=== PATIENT | male | born 1965 | race Caucasian/White ===

== ENCOUNTER 2020-02-19 18:02 | Inpatient (IN) | payer BC, SELFPAY ==
[2020-02-19 18:08] VITALS: BP 107/66; PULSE 52; RESP 14; TEMP 36.3; O2SAT 97; BMI 26.6
[2020-02-19 20:13] LABS: Basophils # 0.1 10^3/uL (0.0-0.1); Basophils % 0.5 %; Eosinophils # 0.2 10^3/uL (0.0-0.8); Eosinophils % 1.5 %; Hematocrit 43.8 % (42.0-52.0); Hemoglobin 14.9 g/dL (11.7-16.6); Lymphocytes # 4.3 10^3/uL (0.8-4.8); Lymphocytes % 41.1 %; Mean Corpuscular Hemoglobin 32.8 pg (28.0-34.0); Mean Corpuscular Volume 96.5 fL (80-94); Mean Platelet Volume 12.8 fL (7.4-10.4); Monocytes # 1.2 10^3/uL (0.2-0.9); Monocytes % 11.8 %; Neutrophils # 4.65 10^3/uL (1.8-7.7); Neutrophils % 44.9 %; Nucleated Red Blood Cells % 0 %; Platelet Count 271 10^3/cmm (130-400); Red Blood Count 4.54 10^6/uL (4.1-5.3); Red Cell Distribution Width 12.8 % (12.1-15.1); White Blood Count 10.4 10^3/uL (4.0-10.0)
[2020-02-19 20:47] LABS: Alanine Aminotransferase 259 U/L (0-41); Albumin Level 4.7 g/dL (3.5-5.2); Alkaline Phosphatase 114 IU/L (40-130); Anion Gap 25.2 (5-19); Aspartate Amino Transferase 112 U/L (0-40); Blood Urea Nitrogen 81 mg/dL (6-20); Calcium 9.7 mg/dL (8.5-10.5); Carbon Dioxide 18 mmol/L (22-29); Chloride 94 mmol/L (98-107); Creatine Phosphokinase 167 U/L (39-308); Globulin 3.8 g/dL (1.3-4.6); Glomerular Filtration Rate 6.6 mL/min (90-130); Glucose 108 mg/dL (65-115); Magnesium 3.1 mg/dL (1.7-2.3); Osmolality Calculated 275 mOsm/kg (285-295); Potassium 5.2 mmol/L (3.5-5.1); Sodium 132 mmol/L (136-145); Total Bilirubin 0.6 mg/dL (0.15-1.2); Total Protein 8.5 g/dL (6.6-8.7)
[2020-02-19 21:05] LABS: INR 0.92 (0.8-1.2)
--- NOTE | 2020-02-19 21:11 | ED_ITS ---
HPI - General Adult General: Chief complaint: General Medical Stated complaint: abnormal labs Time Seen by Provider: 02/19/20 20:39 History of Present Illness: HPI narrative: 55-year-old male brought into the emergency room at the direction of his PCP had some abnormal labs. He was told his renal functions were abnormal but a week ago he worked on the [employer] did not feel good actually got sick that evening since then he is been sensitive to heat just generally not felt well he thought he got quite dehydrated he was having nausea and vomiting that night. 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 Onset (ago): day(s) Severity: moderate Relieving factors: none Exacerbating factors: other (Heat) Associated symptoms: Reports decreased appetite, headache(s), malaise, nausea, vomiting and weakness; Deny chest pain, dyspnea or rash Treatments prior to arrival: none Review of Systems Const: Reports: malaise ENMT: Denies: throat pain, ear or mastoid pain, nasal discharge or nasal congestion Card: Denies: chest pain, edema, dyspnea on exertion or orthopnea Resp: Denies: dyspnea, productive cough or non-productive cough GI: Reports: nausea and vomiting : Denies: flank pain, dysuria, urinary frequency or urinary urgency Skin/Breast: Denies: rash or pruritus Neuro: Reports: headache(s) [facility] ED PFSH: Medical History (Updated 03/02/20 @ 07:01 by Iam Denson DO) Gout Hypertension Blood pressure medication reduced. Surgical History (Updated 02/19/20 @ 21:13 by Iam Denson DO) No pertinent past surgical history Family History (Updated 02/19/20 @ 23:51 by Elba Pham MD) Father Cancer Mother Afib Other Hypertension Social History (Updated 02/19/20 @ 23:50 by Elba Pham MD) Smoking and tobacco status: former smoker Alcohol intake: current Alcohol intake frequency: other Household members: spouse Physical Exam Const: COMMON NORMALS: no acute distress GENERAL APPEARANCE: cooperative and comfortable ORIENTATION/CONSCIOUSNESS: Yes awake, Yes oriented to person, Yes oriented to place and Yes oriented to time HENMT: COMMON NORMALS: normocephalic, atraumatic, hearing grossly normal bilaterally, external ears normal, EAC's normal, TM's normal bilaterally, Normal nasal mucous membranes and turbinates present, moist oral mucous membranes and oropharynx normal HEAD & SCALP: normocephalic and atraumatic NOSE: Normal nasal mucous membranes and turbinates present EXTERNAL EAR: Yes external ears normal EXTERNAL AUDITORY CANAL: EAC's normal TYMPANIC MEMBRANE: TM's normal bilaterally Eye: COMMON NORMALS: Equal, round and reactive pupils present, EOMs intact bilaterally, conjunctivae normal and no scleral icterus CONJUNCTIVA: Yes conjunctivae normal PUPIL: Yes Equal, round and reactive pupils present Neck/C-Spine: COMMON NORMALS: full ROM, no lymphadenopathy, supple and no JVD Lymph: LYMPHATIC: no lymphadenopathy noted and no lymphedema noted Resp: COMMON NORMALS: normal respiratory effort, No retractions, No use of accessory muscles and clear to auscultation bilaterally AUSCULTATION: clear to auscultation bilaterally Cardio: COMMON NORMALS: no JVD, regular rate, regular rhythm and No murmurs present (Cardio) RATE: regular rate RHYTHM: regular rhythm GI: COMMON NORMALS: Soft to palpation and No hepatosplenomegaly present AUSCULTATION: Yes normoactive bowel sounds PALPATION: Yes Soft to palpation, No Tenderness to palpation present (GI), No Guarding due to palpation present (GI) and Yes No hepatosplenomegaly present Extremity: COMMON NORMALS: normal to inspection, capillary refill normal, no clubbing, cyanosis or edema, no calf tenderness and no pedal edema Neuro: SENSORIUM/ORIENTATION: Yes oriented to person, Yes oriented to place and Yes oriented to time Skin: COMMON NORMALS: no rashes or lesions noted GENERAL SKIN EXAM: no rashes or lesions noted Course Vital Signs: Vital signs: Vital Signs Temperature 98.0 F 02/21/20 10:59 Pulse Rate 63 02/21/20 10:59 Respiratory Rate 18 02/21/20 10:59 Blood Pressure 122/78 02/21/20 10:59 Pulse Oximetry 99 02/21/20 10:59 MDM - General Adult MDM Narrative: Medical decision making narrative: Patient is significant acute kidney injury with an elevated creatinine of 8.5 he has mild hyperkalemia and only 5.2 we will go ahead and admit for IV fluids discussed with Dr. Florez's she will be the attending he also has a mild transaminitis. Lab Data: Labs: Lab Results 02/19/20 02/19/20 02/19/20 Range/Units 20:05 20:05 20:05 WBC 10.4 H (4.0-10.0) 10^3/ uL RBC 4.54 (4.1-5.3) 10^6/u L Hgb 14.9 (11.7-16.6) g/dL Hct 43.8 (42.0-52.0) % MCV 96.5 H (80-94) fL MCH 32.8 (28.0-34.0) pg MCHC 34.0 (30.0-36.0) g/dL RDW 12.8 (12.1-15.1) % Plt Count 271 (130-400) 10^3/c mm MPV 12.8 H (7.4-10.4) fL Neut % (Auto) 44.9 % Lymph % (Auto) 41.1 % [place] % (Auto) 11.8 % Eos % (Auto) 1.5 % Baso % (Auto) 0.5 % Neut # (Auto) 4.65 (1.8-7.7) 10^3/u L Lymph # (Auto) 4.3 (0.8-4.8) 10^3/u L [place] # (Auto) 1.2 H (0.2-0.9) 10^3/u L Eos # (Auto) 0.2 (0.0-0.8) 10^3/u L Baso # (Auto) 0.1 (0.0-0.1) 10^3/u L Nucleated RBC % (a uto) 0 % Nucleated RBCs # 0.0 /100WBC PT 12.70 (10.5-13.3) SECO NDS INR 0.92 (0.8-1.2) Sodium 132 L (136-145) mmol/L Potassium 5.2 H (3.5-5.1) mmol/L Chloride 94 L (98-107) mmol/L Carbon Dioxide 18 L (22-29) mmol/L Anion Gap 25.2 H (5-19) BUN 81 H (6-20) mg/dL Creatinine 8.5 H* (0.7-1.2) mg/dL GFR Calculation 6.6 L (90-130) mL/min Glucose 108 (65-115) mg/dL Calculated Osmolal ity 275 L (285-295) mOsm/k g Uric Acid (3.4-7.0) mg/dL Calcium 9.7 (8.5-10.5) mg/dL Phosphorus (2.5-4.5) mg/dL Magnesium 3.1 H (1.7-2.3) mg/dL Total Bilirubin 0.6 (0.15-1.2) mg/dL AST 112 H (0-40) U/L ALT 259 H (0-41) U/L Alkaline Phosphata se 114 (40-130) IU/L Creatine Kinase 167 (39-308) U/L Total Protein 8.5 (6.6-8.7) g/dL Albumin 4.7 (3.5-5.2) g/dL Globulin 3.8 (1.3-4.6) g/dL Urine Color (Yellow) Urine Appearance (CLEAR) Urine pH (5-7) Ur Specific Gravit y (1.005-1.030) Urine Protein (Negative) Urine Glucose (UA) (Normal) Urine Ketones (Negative) Urine Blood (Negative) Urine Nitrate (Negative) Urine Bilirubin (NEGATIVE) Urine Urobilinogen (Negative) mg/dL Ur Leukocyte [place] (Negative) Urine RBC (0-2) /hpf Urine WBC (0-5) /hpf Ur Squamous Epith Cells (0-5) Calcium Oxalate Cr ystal /hpf Urine Bacteria (NONE) Hyaline Casts Urine Mucus 02/19/20 02/19/20 Range/Units 20:05 21:20 WBC (4.0-10.0) 10^3/ uL RBC (4.1-5.3) 10^6/u L Hgb (11.7-16.6) g/dL Hct (42.0-52.0) % MCV (80-94) fL MCH (28.0-34.0) pg MCHC (30.0-36.0) g/dL RDW (12.1-15.1) % Plt Count (130-400) 10^3/c mm MPV (7.4-10.4) fL Neut % (Auto) % Lymph % (Auto) % [place] % (Auto) % Eos % (Auto) % Baso % (Auto) % Neut # (Auto) (1.8-7.7) 10^3/u L Lymph # (Auto) (0.8-4.8) 10^3/u L [place] # (Auto) (0.2-0.9) 10^3/u L Eos # (Auto) (0.0-0.8) 10^3/u L Baso # (Auto) (0.0-0.1) 10^3/u L Nucleated RBC % (a uto) % Nucleated RBCs # /100WBC PT (10.5-13.3) SECO NDS INR (0.8-1.2) Sodium (136-145) mmol/L Potassium (3.5-5.1) mmol/L Chloride (98-107) mmol/L Carbon Dioxide (22-29) mmol/L Anion Gap (5-19) BUN (6-20) mg/dL Creatinine (0.7-1.2) mg/dL GFR Calculation (90-130) mL/min Glucose (65-115) mg/dL Calculated Osmolal ity (285-295) mOsm/k g Uric Acid 6.4 (3.4-7.0) mg/dL Calcium (8.5-10.5) mg/dL Phosphorus 9.9 H* (2.5-4.5) mg/dL Magnesium (1.7-2.3) mg/dL Total Bilirubin (0.15-1.2) mg/dL AST (0-40) U/L ALT (0-41) U/L Alkaline Phosphata se (40-130) IU/L Creatine Kinase (39-308) U/L Total Protein (6.6-8.7) g/dL Albumin (3.5-5.2) g/dL Globulin (1.3-4.6) g/dL Urine Color Yellow (Yellow) Urine Appearance Clear (CLEAR) Urine pH 5 (5-7) Ur Specific Gravit y 1.030 (1.005-1.030) Urine Protein Neg (Negative) Urine Glucose (UA) Norm (Normal) Urine Ketones Negative (Negative) Urine Blood Neg (Negative) Urine Nitrate Negative (Negative) Urine Bilirubin 1+ H (NEGATIVE) Urine Urobilinogen Norm (Negative) mg/dL Ur Leukocyte [place] Negative (Negative) Urine RBC 0-4 H (0-2) /hpf Urine WBC 0-4 H (0-5) /hpf Ur Squamous Epith Cells 0-4 H (0-5) Calcium Oxalate Cr ystal 10-15 H /hpf Urine Bacteria 1+ H (NONE) Hyaline Casts 10-15 H Urine Mucus 1+ Discharge Plan Discharge Patient Disposition: Admitted As Inpatient Admit Provider: Elba Pham Clinical Impression: Acute kidney injury, Hypertension Condition: Stable Discharge Orders: Discharge Order (Routine); Ordered 02/21/20 Ordered By: Jordon Mays Referrals: Surendra Elizondo DO [Primary Care Provider] - 4-7 days (BMP on follow-up as well as follow-up of positive hepatitis C antibody screening. Call patient at home with a hospital follow up appoinntment in 4-7 days and also needs a lab drawn on this date also. Faxed information to clinic.) Discharge Diet: Regular Discharge Activity: Increase activity as tolerated Patient Instructions: Alcoholism, Metoprolol (By mouth) Additional Instructions: Do not take potassium Avoid overheating Follow-up with your primary care provider next week No alcohol. 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
[2020-02-19] MEDS: sodium chloride 0.9% 1,000 ML 999 ML IV ×2 (21:17→22:25)
--- NOTE | 2020-02-19 21:28 | PC.NURSE ---
critical lab result for creatinine given to Dr Denson.
[2020-02-19 22:33] VITALS: BP 90/59; PULSE 58; RESP 16; O2SAT 98
[2020-02-19 22:33] LABS: Bacteria Urine 1+; Bilirubin Urine 1+ (NEGATIVE); Blood Urine Neg (Negative); Glucose Urine UA Norm (Normal); Ketones Urine Negative (Negative); Leukocyte Esterase Urine Negative (Negative); Mucus Urine 1+; Nitrate Urine Negative (Negative); Protein Urine Neg (Negative); RBC Urine 0-4 /hpf (0-2); Squamous Epithelial Cell Urine 0-4 (0-5); Urine Appearance Clear (CLEAR); Urine Color Yellow (Yellow); Urobilinogen Urine Norm (Negative); WBC Urine 0-4 /hpf (0-5); pH Urine 5 (5-7)
--- NOTE | 2020-02-19 22:51 | P.HP_ITS ---
Providers/Chief Complaint Admitting Physician: Elba Pham Primary Care Provider: Surendra Elizondo DO Chief Complaint: abnormal labs History of Present Illness Trung Marvin is a 55 year old male who presented to the emergency room for admission due to abnormal laboratory studies. 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 He has been working outside in the heat lately. When it gets as humid as it has been, it is hard on him. He says he tries to drink water. He has been sweating quite excessively. He states that for the past 2 to 3 years he has been sweating more than he used to. He had a day that he just felt really hot and overheated. He was nauseated and had some vomiting that night. He has been in bed for the last few days which is highly unusual for him. He has some general ized aches and pains. He does have some abdominal discomfort. Denies diarrhea or constipation. He had an ammonia smell in his nose and noticed that his urine was getting quite dark prompting him to be seen by his primary care provider. He denies any fever. He denies any dysuria, hesitancy, flank pain. He has had a little bit of dribbling of urine at times. His urine output has been less. Art mcpherson describes several episodes of getting overheated the past month. This time it has been the worst. He has continued to take his home medicines including lisinopril and some potassium supplementation. He does describe some muscle aches and general malaise. Laboratory studies here showed a creatinine of 8.5. Potassium was 5.2. Patient has no history of known renal problems. He is being admitted for further evaluation and treatment. 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 Review of Systems Const: Reports: body aches, change in appetite, fatigue, malaise and diaphoresis; Denies: fever(s) Eyes: Denies: change in vision ENMT: Reports: dry mouth and change in hearing (hard of hearing); Denies: throat pain, tinnitus or disequilibrium Card: Reports: lightheadedness; Denies: chest pain, palpitations, swelling of feet/ankles or syncope Resp: Denies: dyspnea or productive cough GI: Reports: abdominal pain, nausea and vomiting; Denies: hematemesis, dysphagia, diarrhea, constipation or hematochezia : Reports: urinary dribbling and oliguria; Denies: flank pain, difficulty urinating or urinary hesitancy Musc: Reports: muscle cramps and muscle weakness Skin/Breast: Reports: dry skin and other (flush) Neuro: Reports: numbness in extremities (hands), weakness in extremities (general) and dizziness; Denies: headache(s), lack of coordination, difficulty walking, frequent falls, vertigo, confusion or Slurred speech present Psych: Denies: visual hallucinations or auditory hallucinations Endo: Reports: excessive sweating French/Lymph: Denies: easy bruising or easy bleeding Medications/Allergies Home Medications Medication Instructions Recorded Confirmed Last Taken Type allopurinol 300 mg PO DAILY 02/19/20 02/19/20 02/19/20 History lisinopril 20 mg PO DAILY 02/19/20 02/19/20 02/19/20 History metoprolol succinate 50 mg PO QAM 02/19/20 02/19/20 02/19/20 History potassium gluconate 595 mg PO QAM 02/19/20 02/19/20 02/19/20 History Allergies Allergy/AdvReac Type Severity Reaction Status Date / Time No Known Allergies Allergy Verified 02/19/20 20:47 PFSH Acute PFSH: Medical History (Updated 02/20/20 @ 00:12 by Elba Pham MD) Gout Hypertension Surgical History (Updated 02/19/20 @ 21:13 by Iam Denson DO) No pertinent past surgical history Family History (Updated 02/19/20 @ 23:51 by Elba Pham MD) Father Cancer Mother Afib Other Hypertension Social History (Updated 02/19/20 @ 23:50 by Elba Pham MD) Smoking and tobacco status: former smoker Alcohol intake: current Alcohol intake frequency: other Alcohol use comment: 8- 10 beers per night Household members: spouse Vitals/I&O/Wt Last Vital Signs Temp 97.4 F L 02/19/20 18:08 Pulse 58 L 02/19/20 22:33 Resp 16 02/19/20 22:33 BP 90/59 02/19/20 22:33 Pulse Ox 98 02/19/20 22:33 02/19/20 02/19/20 02/19/20 06:59 14:59 22:59 Intake Total 1000 / 1000 Balance 1000 / 1000 Weight last 48 hrs Weight 81.647 kg Physical Exam Const: OTHER: Alert, oriented x3, cooperative HENMT: OTHER: Normocephalic atraumatic, dry mucous membranes, few teeth Eye: OTHER: Pupils equally round and reactive to light, injected conjunctiva Neck/C-Spine: OTHER: Supple, no thyromegaly or lymphadenopathy Resp: OTHER: Clear to auscultation bilaterally, no rales, rhonchi or wheezes noted, no accessory muscle use noted, no tachypnea Cardio: OTHER: Regular rate and rhythm, no murmurs gallops or rubs. Pulses equal throughout GI: OTHER: Abdomen soft, nontender, positive bowel sounds, full bladder but with need to pee Extremity: NARRATIVE EXTREMITY EXAM: No cyanosis, clubbing or edema, no acute synovitis Neuro: OTHER: Face symmetric, speech clear, moves all extremities, eomi, no asterixis, hard of hearing Psych: OTHER: Normal affect Skin: OTHER: Skin dry, face red, evidence sun exposure on sun exposed areas Data : 02/19/20 20:05 02/19/20 20:05 Other Labs: Liver Function 02/19/20 Range/Units 20:05 Total Bilirubin 0.6 (0.15-1.2) mg/dL AST 112 H (0-40) U/L ALT 259 H (0-41) U/L Alkaline Phosphatase 114 (40-130) IU/L Albumin 4.7 (3.5-5.2) g/dL Urine 02/19/20 Range/Units 21:20 Urine Color Yellow (Yellow) Urine Appearance Clear (CLEAR) Urine pH 5 (5-7) Ur Specific [place] 1.030 (1.005-1.030) Urine Protein Neg (Negative) Urine Glucose (UA) Norm (Normal) Laboratory Tests 02/19/20 20:05 Calculated Osmolality 275 L Magnesium 3.1 H Creatine Kinase 167 Laboratory Tests 02/19/20 21:20 Urine Nitrate Negative Ur Leukocyte Esterase Negative Urine RBC 0-4 H Urine WBC 0-4 H Ur Squamous Epith Cells 0-4 H Calcium Oxalate Crystal 10-15 H Urine Bacteria 1+ H Hyaline Casts 10-15 H EKG 1: I personally reviewed and interpreted this EKG as follows: My Interpretation: EKG sinus rhythm without any acute ST segment changes and normal T wave morphology noted A&P Assessment and plan (1) Acute renal failure: Suspect primarily prerenal from heat although an element of ATN from lisinopril along with this is considered. CK is currently normal. Denies any history of kidney issues previously. Do not have a baseline labs however for comparison. Status: Acute Qualifiers: Acute renal failure type: unspecified Qualified Code(s): N17.9 - Acute kidney failure, unspecified (2) Transaminitis: From description, sounds like he has had this to some degree previously. Currently no comparative labs available. Suspect related to chronic alcohol use. Status: Acute (3) Daily consumption of alcohol: Drinks 8-10 beers daily. Rarely goes without the does describe him going a month without drinking beer in the past because of elevated enzymes and states that he only had mild irritability. Status: Chronic (4) Hard of hearing: Patient is hard of hearing and per the will say okay to most things to cover it up but may not know what you would actually said. Status: Chronic Qualifiers: Hearing loss type: unspecified Laterality: bilateral Qualified Code(s): H91.93 - Unspecified hearing loss, bilateral (5) Hypertension: Chronically on lisinopril and metoprolol Status: Chronic Qualifiers: Hypertension type: essential hypertension Qualified Code(s): I10 - Essential (primary) hypertension (6) Gout: Chronically on allopurinol Status: Chronic Qualifiers: Chronicity: chronic Gout etiology: unspecified cause Gout site: unspecified site Presence of tophus: without tophus Qualified Code(s): M1A.9XX0 - Chronic gout, unspecified, without tophus (tophi) Additional A&P Information Inpatient admission IV fluids with saline Serial laboratory studies Check uric acid and phosphorus Check urine lytes Considered [place] but currently able to urinate without difficulty and 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 Patient aware that if unable to urinate, this may become needed. Post void residual If not improving can consider nephrology consult, but presently expect will respond to fluids No prior comparative labs presently, but will request from Andreas Coronado Hold home lisinopril as well as potassium Continue home metoprolol at half dose, monitoring BP for need to increase Currently holding allopurinol but will need to resume when appropriate Librium po prn anxiety, per has gone a month without beer with no withdrawal sx besides some minor irritability Check hepatitis panel Abd US to eval kidney and liver Renal nondialysis diet presently Baseline EKG and telemetry monitoring at least overnight until renal function starts to improve and no evidence of continued increase in potassium Supportive care otherwise Plans discussed with patient as well as his and both were given an opportunity to ask questions Full code Anticipate discharge home with outpatient follow-up to Dr. Elizondo Attestations Medical Necessity Statement*: Anticipated stay greater than 2 midnights in a patient presenting with significant acute renal failure. Fortunately his potassium is only minimally elevated presently. He will be receiving IV fluids, other work-up as noted and monitoring for any acute changes. Other plans as indicated. Coding Level of Care Code Acute Certified Genetic Counselor for [facility] Swan Diagnoses Acute renal failure N17.9 Acute renal failure type: unspecified Transaminitis R74.0 Daily consumption of alcohol Z78.9 Hard of hearing H91.93 Hearing loss type: unspecified Laterality: bilateral Hypertension I10 Hypertension type: essential hypertension Gout M1A.9XX0 Chronicity: chronic Gout etiology: unspecified cause Gout site: unspecified site Presence of tophus: without tophus
[2020-02-19 22:52] VITALS: BP 100/59; PULSE 61; RESP 18; O2SAT 97
--- NOTE | 2020-02-19 23:34 | ECG_ITS ---
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 Measurements Intervals [place] Rate: 57 P: 73 ID: [id number] QRS: 53 QRSD: 98 T: 16 QT: 388 QTc: 380 Interpretive Statements SINUS BRADYCARDIA No previous ECG available for comparison Electronically Signed On 02-20-2020 19:05:31 CDT by Ant Fitzpatrick M.D. [email or web address]
[2020-02-19 23:55] LABS: Add On to Lab Order(s) Added
[2020-02-20] VITALS (7 sets, daily range): BP systolic 94–132; BP diastolic 60–77; PULSE 54–67; RESP 16–22; TEMP 36.4–37; O2SAT 95–99
[2020-02-20 00:07] LABS: Uric Acid 6.4 mg/dL (3.4-7.0)
--- NOTE | 2020-02-20 00:42 | US_ITS ---
WS: [id number] Complete ABDOMINAL ULTRASOUND HISTORY: acute renal failure and transaminitis COMPARISON: 06/20/2019 Liver: 15.4 cm in length. Normal size liver with mild coarsened echogenicity from hepatic steatosis. No bile duct dilatation. Gallbladder: Normally distended with no gallstones, wall thickening or pericholecystic fluid. Gallbladder wall thickness: 0.3 cm. Pancreas: Pancreas is poorly visualized. CBD: 0.5 cm. Right kidney: 10.0 cm x 6.2 cm x 4.8 cm. No mass, cortical thickening or hydronephrosis. Left kidney: 11.2 cm x 5.7 cm x 7.5 cm. No mass, cortical thickening or hydronephrosis. Spleen: Normal size and echogenicity. Abdominal aorta and IVC are within normal limits. No ascites. US/US abdomen complete* [id number] IMPRESSION: 1. Normal gallbladder. 2. Mild hepatic steatosis.
[2020-02-20 00:57] LABS: Phosphorus 9.9 mg/dL (2.5-4.5)
[2020-02-20] MEDS: sodium chloride 0.9% 1,000 ML 150 ML IV ×4 (01:16→21:13)
[2020-02-20] MEDS: heparin 5,000 unit/mL INJ 1 mL 5000 UNIT SUBCUT ×2 (01:16→16:48)
--- NOTE | 2020-02-20 01:34 | PC.NURSE ---
Bladder scan when to floor was 189 post void was 25 and pt had voided 175. No complaints voiced at time.
[2020-02-20 03:41] LABS: Urine Creatinine 610 mg/dL (39-259); Urine Random Sodium 25 mmol/L
[2020-02-20 04:46] LABS: Urea Nitrogen,Urine Random 252 mg/dL
[2020-02-20 05:01] LABS: Basophils % 0.6 %; Eosinophils # 0.2 10^3/uL (0.0-0.8); Eosinophils % 2.1 %; Hematocrit 38.9 % (42.0-52.0); Hemoglobin 12.9 g/dL (11.7-16.6); Lymphocytes # 3.1 10^3/uL (0.8-4.8); Lymphocytes % 43.6 %; Mean Corpuscular HGB Conc 33.2 g/dL (30.0-36.0); Mean Corpuscular Hemoglobin 32.1 pg (28.0-34.0); Mean Corpuscular Volume 96.8 fL (80-94); Mean Platelet Volume 13.2 fL (7.4-10.4); Monocytes # 0.9 10^3/uL (0.2-0.9); Monocytes % 12.5 %; Neutrophils # 2.88 10^3/uL (1.8-7.7); Neutrophils % 40.9 %; Nucleated Red Blood Cells % 0 %; Platelet Count 188 10^3/cmm (130-400); Red Blood Count 4.02 10^6/uL (4.1-5.3); Red Cell Distribution Width 12.7 % (12.1-15.1)
[2020-02-20 05:47] LABS: Creatine Phosphokinase 134 U/L (39-308); Thyroid Stimulating Hormone 0.94 uIU/mL (0.27-4.20)
[2020-02-20 05:48] LABS: Alanine Aminotransferase 208 U/L (0-41); Albumin Level 3.7 g/dL (3.5-5.2); Alkaline Phosphatase 95 IU/L (40-130); Anion Gap 18.8 (5-19); Aspartate Amino Transferase 88 U/L (0-40); Blood Urea Nitrogen 79 mg/dL (6-20); Calcium 8.3 mg/dL (8.5-10.5); Carbon Dioxide 17 mmol/L (22-29); Chloride 107 mmol/L (98-107); Globulin 3.5 g/dL (1.3-4.6); Glomerular Filtration Rate 10.4 mL/min (90-130); Glucose 99 mg/dL (65-115); Magnesium 2.9 mg/dL (1.7-2.3); Osmolality Calculated 286 mOsm/kg (285-295); Phosphorus 5.9 mg/dL (2.5-4.5); Potassium 4.8 mmol/L (3.5-5.1); Sodium 138 mmol/L (136-145); Total Bilirubin 0.6 mg/dL (0.15-1.2); Total Protein 7.2 g/dL (6.6-8.7)
[2020-02-20 06:10] LABS: Slide Review Slide Review Perform
--- NOTE | 2020-02-20 06:22 | PC.NURSE ---
Dr Pham notified of cr lab creat 5.7. no new orders. Held metoprolol pulse on tele 57
[2020-02-20 07:09] LABS: Hepatitis A Antibody IgM Non-Reactive (Nonreactive); Hepatitis B Core IgM Non-Reactive (Nonreactive); Hepatitis B Surface Antigen Non-Reactive (Nonreactive); Hepatitis C Virus Antibody Reactive (Nonreactive)
--- NOTE | 2020-02-20 08:17 | PM.PN ---
Subjective Subjective: Interval history: History and physical reviewed. Patient denies any specific complaints currently. He reports he is urinating quite a bit. Medications: Reviewed: Yes Vitals/I&O/Wt Last Vital Signs Temp 97.6 F 02/20/20 07:28 Pulse 62 02/20/20 07:28 Resp 18 02/20/20 07:28 BP 94/60 02/20/20 07:28 Pulse Ox 97 02/20/20 07:28 02/19/20 02/20/20 02/20/20 22:59 06:59 14:59 Intake Total 1000 / 1000 1047.5 / 2047.5 Output Total 1150 / 1150 600 / 600 Balance 1000 / 1000 -102.5 / 897.5 -600 / -600 Weight last 48 hrs Weight 81.647 kg Physical Exam Narrative: EXAM NARRATIVE: General exam is no apparent distress Cardiovascular regular rate and rhythm without murmur Lungs clear Abdomen is soft with positive bowel sounds Extremities no cyanosis clubbing or edema. Data : 02/20/20 03:40 02/20/20 03:40 A&P Assessment and plan (1) Acute renal failure: Secondary to dehydration, prerenal causes with ATN. Hold blood pressure medicine currently including lisinopril as well as potassium No evidence of rhabdomyolysis, CK was normal Renal function appears to rapidly be improving. Hopefully he can be discharged in 1 to 2 days. Abdominal ultrasound was performed and no evidence of obstruction was noted. Status: Acute Qualifiers: Acute renal failure type: unspecified Qualified Code(s): N17.9 - Acute kidney failure, unspecified (2) Transaminitis: May be secondary to alcohol. Awaiting full hepatitis panel results. Status: Acute (3) Daily consumption of alcohol: Significant intake of beer daily. However, he quit on Sunday. At this point he does not appear to be having any significant withdrawal. Status: Chronic (4) Hard of hearing: Status: Chronic Qualifiers: Hearing loss type: unspecified Laterality: bilateral Qualified Code(s): H91.93 - Unspecified hearing loss, bilateral (5) Hypertension: Holding medicine secondary to renal failure and hypotension Status: Chronic Qualifiers: Hypertension type: essential hypertension Qualified Code(s): I10 - Essential (primary) hypertension (6) Gout: Chronically on allopurinol Status: Chronic Qualifiers: Gout site: unspecified site Gout etiology: unspecified cause Chronicity: chronic Presence of tophus: without tophus Qualified Code(s): M1A.9XX0 - Chronic gout, unspecified, without tophus (tophi) Additional A&P Information Full code Heparin for DVT prophylaxis. Attestations Medical Necessity Statement*: Needs continued hospitalization for close follow-up of severe acute renal failure. 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
--- NOTE | 2020-02-20 09:24 | PC.CHAP ---
Pastoral Care Encounter/Spiritual Assessment Type of Contact [] Declined rn radiology visit [] Patient/Family/Request visit [] Outpatient visit [] Follow-up visit [] Physician referral [] Code/Alert [x] Routine visit [] Staff referral [] Actively dying [] Patient sleeping [] Family support [] [] Out of room [] Palliative care [] [] Receiving care in room [] Pre-surgical visit [] Trauma [] Long length of stay [] ICU visit [] Other: Relational/Emotional Strength [] Patient feels connected with others/family/visitors/staff [] Distress [] Loneliness/isolation [] Abandonment Spirituality of Patient [] Person of Stephanie [] Attends Baptism of their Stephanie [] Believes in Prayer [] Reads Bible or Spiritism materials [] There are Spiritual issues to be addressed Cso Interventions [x] Prayer [x] Active listening [x] Non-anxious presence [x] Spiritual/emotional support [] Crisis/trauma care [] Spiritual counseling [] Bereavement support [] Provided bereavement packet [] Provided Bible/devotional materials [] Provided toy/stuffed animal, coloring book to patient or family member [] Provided Communion [] Anointing/Emmett [] Salvation [x] Completed spiritual assessment [] Other: Impact on Illness or Injury [] Angry [] Fearful [] Anxious [] Often cries [] Exhaustion [] Unable to work [] Unable to attend jainism [] Unable to walk/stand [] Unable to read [] Unable to drive [] Unable to eat/drink [] Unable to sleep [] Unable to be with family [] Patient intubated [] Other: Summary Patient resting well. Time spent with patient 10 min
[2020-02-21] VITALS: BP 110/69; PULSE 63; RESP 20; TEMP 37; O2SAT 97
[2020-02-21] MEDS: sodium chloride 0.9% 1,000 ML 150 ML IV (03:47)
[2020-02-21 04:00] VITALS: BP 123/79; PULSE 63; RESP 20; TEMP 36.5; O2SAT 97
[2020-02-21] MEDS: heparin 5,000 unit/mL INJ 1 mL 5000 UNIT SUBCUT (04:46)
[2020-02-21 04:47] LABS: Basophils % 0.7 %; Eosinophils # 0.1 10^3/uL (0.0-0.8); Eosinophils % 2.1 %; Hematocrit 37.6 % (42.0-52.0); Hemoglobin 12.4 g/dL (11.7-16.6); Lymphocytes # 2.5 10^3/uL (0.8-4.8); Lymphocytes % 43.4 %; Mean Corpuscular Hemoglobin 32.5 pg (28.0-34.0); Mean Corpuscular Volume 98.7 fL (80-94); Mean Platelet Volume 12.6 fL (7.4-10.4); Monocytes # 0.7 10^3/uL (0.2-0.9); Monocytes % 12.4 %; Neutrophils % 41.2 %; Nucleated Red Blood Cells % 0 %; Platelet Count 188 10^3/cmm (130-400); Red Blood Count 3.81 10^6/uL (4.1-5.3); Red Cell Distribution Width 12.9 % (12.1-15.1); White Blood Count 5.8 10^3/uL (4.0-10.0)
[2020-02-21 05:23] LABS: Alanine Aminotransferase 208 U/L (0-41); Albumin Level 3.7 g/dL (3.5-5.2); Alkaline Phosphatase 88 IU/L (40-130); Anion Gap 13.2 (5-19); Aspartate Amino Transferase 94 U/L (0-40); Blood Urea Nitrogen 41 mg/dL (6-20); Calcium 8.6 mg/dL (8.5-10.5); Carbon Dioxide 20 mmol/L (22-29); Chloride 111 mmol/L (98-107); Globulin 3.4 g/dL (1.3-4.6); Glomerular Filtration Rate 48.8 mL/min (90-130); Glucose 102 mg/dL (65-115); Osmolality Calculated 286 mOsm/kg (285-295); Potassium 5.2 mmol/L (3.5-5.1); Sodium 139 mmol/L (136-145); Total Bilirubin 0.8 mg/dL (0.15-1.2); Total Protein 7.1 g/dL (6.6-8.7)
[2020-02-21 07:17] VITALS: BP 122/78; PULSE 63; RESP 18; TEMP 36.7; O2SAT 99
--- NOTE | 2020-02-21 10:07 | PM.DCS ---
Discharge Providers Date of Admission: 02/19/20 22:23 Date of Discharge: February 21, 2020 Attending Provider at Admission: Elba Pham MD Attending Provider at Discharge: Jordon Mays MD Primary Care Provider: Surendra Elizondo DO Diagnoses at Discharge Discharge Diagnosis (1) Acute renal failure: Status: Acute Problem details: Resolved Qualifiers: Acute renal failure type: unspecified Qualified Code(s): N17.9 - Acute kidney failure, unspecified (2) Transaminitis: Status: Acute Problem details: Positive hepatitis C. To follow-up as an outpatient. To stop alcohol. (3) Daily consumption of alcohol: Status: Chronic Problem details: beer (4) Hard of hearing: Status: Chronic Qualifiers: Hearing loss type: unspecified Laterality: bilateral Qualified Code(s): H91.93 - Unspecified hearing loss, bilateral (5) Hypertension: Status: Chronic Problem details: Blood pressure medication reduced. Qualifiers: Hypertension type: essential hypertension Qualified Code(s): I10 - Essential (primary) hypertension (6) Gout: Status: Chronic Qualifiers: Gout site: unspecified site Gout etiology: unspecified cause Chronicity: chronic Presence of tophus: without tophus Qualified Code(s): M1A.9XX0 - Chronic gout, unspecified, without tophus (tophi) Reason for Visit Reason for Visit: abnormal labs Hospital Course Hospital Course: Trung is a 55-year-old white male who presented to the hospital with acute renal failure. Rhabdomyolysis was not present. There was concern he had had heat exhaustion. Initial creatinine was 8.5. He had no evidence of obstruction. Abdominal ultrasound demonstrated mild hepatic steatosis. LFTs were slightly high. Patient stopped drinking 2 to 3 days before admission. While in the hospital he received IV fluids, with rapid improvement of his renal function. At discharge his creatinine was 1.5, markedly improved. I encouraged him to continue to drink fluids on discharge, avoid all alcohol, do not take potassium, and take all medicines as prescribed. His beta-kamille was reduced. Lisinopril was discontinued. Potassium was discontinued. He also had a positive hepatitis C antibody test which will need follow-up as an outpatient. Physical Exam Narrative: EXAM NARRATIVE: General exam no apparent distress Cardiovascular regular rate and rhythm without murmur Lungs clear Abdomen is soft, positive bowel sounds Extremities no cyanosis clubbing or edema Discharge Data Data Completed and Pending: Completed Studies During Hospitalization Category Date Time Status US abdomen comple te* [id number] Routine Ultrasound 02/20/20 00:42 Completed Labs from last 24 hours 02/21/20 02/21/20 04:06 04:06 WBC 5.8 RBC 3.81 L Hgb 12.4 Hct 37.6 L MCV 98.7 H MCH 32.5 MCHC 33.0 RDW 12.9 Plt Count 188 MPV 12.6 H Neut % (Auto) 41.2 Lymph % (Auto) 43.4 [place] % (Auto) 12.4 Eos % (Auto) 2.1 Baso % (Auto) 0.7 Neut # (Auto) 2.40 Lymph # (Auto) 2.5 [place] # (Auto) 0.7 Eos # (Auto) 0.1 Baso # (Auto) 0.0 Nucleated RBC % (a uto) 0 Nucleated RBCs # 0.0 Sodium 139 Potassium 5.2 H Chloride 111 H Carbon Dioxide 20 L Anion Gap 13.2 BUN 41 H Creatinine 1.5 H GFR Calculation 48.8 L Glucose 102 Calculated Osmolal ity 286 Calcium 8.6 Total Bilirubin 0.8 AST 94 H ALT 208 H Alkaline Phosphata se 88 Total Protein 7.1 Albumin 3.7 Globulin 3.4 Vitals: Last Vital Signs Temp 98.0 F 02/21/20 07:17 Pulse 63 02/21/20 07:17 Resp 18 02/21/20 07:17 BP 122/78 02/21/20 07:17 Pulse Ox 99 02/21/20 07:17 Discharge Plan Discharge Patient Disposition: Home, Self-Care Condition: Stable Prescriptions: New metoprolol succinate 50 mg Tablet Extended Release 24 Hr 25 mg PO QAM Qty: 30 RF: 0 Continued allopurinol 300 mg tablet 300 mg PO DAILY RF: 0 Discontinued metoprolol succinate 50 mg tablet extended release 24 hr 50 mg PO QAM RF: 0 lisinopril 20 mg tablet 20 mg PO DAILY RF: 0 potassium gluconate 595 mg (99 mg) Tablet 595 mg PO QAM RF: 0 Referrals: Surendra Elizondo DO [Primary Care Provider] - 4-7 days (BMP on follow-up as well as follow-up of positive hepatitis C antibody screening.) Discharge Diet: Regular Discharge Activity: Increase activity as tolerated Activity Restrictions/Additional Instructions: Do not take potassium Avoid overheating Follow-up with your primary care provider next week No alcohol. Discharge Attestations Time Spent in Discharge Care*: greater than 30 min Quality Metrics Clinical Quality Measures During this hospital stay, did patient experience: None Coding Level of Care Code Acute Thermospray Operator for Chg Fwd Diagnoses Acute renal failure N17.9 Acute renal failure type: unspecified Transaminitis R74.0 Daily consumption of alcohol Z78.9 Hard of hearing H91.93 Hearing loss type: unspecified Laterality: bilateral Hypertension I10 Hypertension type: essential hypertension Gout M1A.9XX0 Gout site: unspecified site Gout etiology: unspecified cause Chronicity: chronic Presence of tophus: without tophus
[2020-02-21 10:59] VITALS: BP 122/78; PULSE 63; RESP 18; TEMP 36.7; O2SAT 99
== END 2020-02-21 11:10 | disposition home or self-care (01) | DRG 684 ==
LOC: ER 20:39 → ICU 22:54 → MEDSURG 02-20 00:03
PROVIDERS: Emergency Medicine; Family Medicine; Admitting Provider Hospitalist; PCP Internal Medicine; Visit Provider Internal Medicine
DX: N17.0 Acute kidney failure with tubular necrosis (principal); I10 Essential (primary) hypertension; M1A.9XX0 Chronic gout, unspecified, without tophus (tophi); H91.93 Unspecified hearing loss, bilateral; F10.20 Alcohol dependence, uncomplicated; K76.0 Fatty (change of) liver, not elsewhere classified; Z87.891 Personal history of nicotine dependence; B19.20 Unspecified viral hepatitis C without hepatic coma
CPT/HCPCS: 12345; 36415; 51798; 76700; 80053; 80074; 81001; 82550; 82570; 83735; 84100; 84300; 84443; 84540; 84550; 85025; 85610; 93005; 96372; 99284; J1644; J7030

== ENCOUNTER → 2020-05-10 10:00 | Outpatient (BNVA) | payer BC, SELFPAY | PROVIDERS: PCP Internal Medicine; Visit Provider Internal Medicine | DX: B18.2 Chronic viral hepatitis C (principal) | CPT/HCPCS: 87522 ==

== ENCOUNTER → 2021-01-20 15:23 | Outpatient (BNVA) | payer BC, SELFPAY | PROVIDERS: PCP Internal Medicine; Visit Provider Nurse Practitioner Family | DX: B19.20 Unspecified viral hepatitis C without hepatic coma (principal); B18.2 Chronic viral hepatitis C | CPT/HCPCS: 87522 ==

== ENCOUNTER 2024-01-30 05:58 | Inpatient (IN) | payer SELFPAY ==
[2024-01-30] VITALS (107 sets, daily range): BP systolic 70–143; BP diastolic 39–86; PULSE 46–106; RESP 6–28; TEMP 36.2–37.1; O2SAT 89–100; BMI 25.1
--- NOTE | 2024-01-30 06:04 | ECG_ITS ---
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 Measurements Intervals [place] Rate: 57 P: 14 MT: 186 QRS: 75 QRSD: 98 T: 46 QT: 395 QTc: 386 Interpretive Statements SINUS BRADYCARDIA Compared to ECG 02/20/2020 00:39:55 No significant changes Electronically Signed On 02-01-2024 13:26:48 CDT by Jasbir Canchola M.D. [email or web address]/[id number] f
--- NOTE | 2024-01-30 06:06 | XRR_ITS ---
PROCEDURE INFORMATION: Exam: XR Chest Exam date and time: 01/30/2024 6:15 AM Age: 58 years old Clinical indication: Dyspnea; Additional info: Dyspnea/cough TECHNIQUE: Imaging protocol: Radiologic exam of the chest. Views: 1 view. COMPARISON: No relevant prior studies available. FINDINGS: Lungs: Unremarkable. No consolidation. Pleural spaces: Unremarkable. No pleural effusion. No pneumothorax. Heart/Mediastinum: Unremarkable. No cardiomegaly. Bones/joints: Unremarkable. XR/XR chest 1V portable [id number] IMPRESSION: No acute findings.
--- NOTE | 2024-01-30 06:07 | ED_ITS ---
HPI - Dizziness 2 General: Chief Complaint: Dizziness Stated Complaint: dizzy, light headed Time Seen by Provider: 01/30/24 06:06 Source: patient Mode of arrival: ambulatory History of Present Illness: HPI Narrative: 58-year-old female presents emergency ro om complaining of lightheadedness dizziness when he first stands. 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 He does drink 8-10 beers per day. He also has a history of hypertension he takes lisinopril once daily for his blood pressure. On arrival here he is hypotensive at baseline. He denies any chest pain or shortness of breath denies any vomiting or diarrhea has been very nauseous. MD elicited complaint: dizziness and lightheadedness Associated symptoms: Reports malaise and nausea; Denies change in hearing, chest pain, chills, cough, diaphoresis, ear discharge, ear pressure, fevers/chills, headache(s), nasal congestion, palpitations, rash, short of breath, syncope, tinnitus, vomiting or weakness Review of Systems 2 Const: Reports: malaise; Denies: fever(s), chills or diaphoresis ENMT: Denies: ear discharge, change in hearing, tinnitus or nasal congestion Card: Denies: chest pain, palpitations or syncope Resp: Denies: dyspnea GI: Reports: nausea; Denies: abdominal pain or vomiting : Denies: dysuria, urinary frequency or urinary urgency Musc: Denies: neck pain or back pain Skin/Breast: Denies: rash Neuro: Denies: headache(s) PFSH ED 2 PFSH: Medical History Hepatitis C Gout Hypertension Blood pressure medication reduced. Surgical History No pertinent past surgical history Family History Father Cancer Mother Atrial fibrillation Other Hypertension Social History Smoking and tobacco/nicotine status: former use of tobacco/nicotine Alcohol intake: current Alcohol intake frequency: other Household members: spouse Physical Exam 2 Const: COMMON NORMALS: no acute distress GENERAL APPEARANCE: cooperative and comfortable ORIENTATION/CONSCIOUSNESS: Yes awake, Yes oriented to person, Yes oriented to place and Yes oriented to time HENMT: COMMON NORMALS: normocephalic, atraumatic and hearing grossly normal bilaterally HEAD & SCALP: normocephalic and atraumatic Resp: COMMON NORMALS: normal respiratory effort, No retractions, No use of accessory muscles and clear to auscultation bilaterally AUSCULTATION: clear to auscultation bilaterally Cardio: COMMON NORMALS: regular rate, regular rhythm and No murmurs present (Cardio) RATE: regular rate RHYTHM: regular rhythm GI: COMMON NORMALS: Soft to palpation and No hepatosplenomegaly present A USCULTATION: Yes normoactive bowel sounds PALPATION: Yes Soft to palpation, No Tenderness to palpation present (GI), No Guarding due to palpation present (GI) and Yes No hepatosplenomegaly present Extremity: COMMON NORMALS: normal to inspection, capillary refill normal, no clubbing, cyanosis or edema, no calf tenderness and no pedal edema Neuro: SENSORIUM/ORIENTATION: Yes oriented to person, Yes oriented to place and Yes oriented to time Skin: COMMON NORMALS: no rashes or lesions noted GENERAL SKIN EXAM: no rashes or lesions noted Course 2 Vital Signs: Vital signs: Vital Signs Temperature 98.6 F 01/31/24 04:42 Pulse Rate 58 L 01/31/24 06:00 Respiratory Rate 16 01/31/24 04:42 Blood Pressure 120/76 01/31/24 04:42 Pulse Oximetry 93 01/31/24 04:42 Oxygen Delivery Me thod Room Air 01/30/24 17:33 MDM - Dizziness Medical Decision Making Acute kidney injury secondary to dehydration. Initial creatinine 5.0 potassium 4.7 patient given IV fluids he is otherwise stable at this time he is not hyperkalemic discussed with hospitalist will admit. Medical Records I reviewed the patient's medical records. Lab Data I reviewed the patient's lab results. 01/31/24 04:36 01/31/24 04:36 Radiology Impressions Chest X-Ray 01/30/24 06:06 IMPRESSION: No acute findings. Renal Ultrasound 01/30/24 09:05 IMPRESSION: 1. Unremarkable bilateral renal ultrasound. Laboratory Results WBC 10.08 10^3/uL (3.29-11.43) 01/30/24 06:12 RBC 5.08 10^6/uL (3.85-5.65) 01/30/24 06:12 Hgb 15.90 g/dL (11.27-16.99) 01/30/24 06:12 Hct 46.3 % (37-53) 01/30/24 06:12 MCV 91.1 fl (82-101) 01/30/24 06:12 MCH 31.3 pg (27-33) 01/30/24 06:12 MCHC 34.3 g/dL (30-55) 01/30/24 06:12 RDW 12.4 % (12.1-15.1) 01/30/24 06:12 Plt Count 288 10^3/cmm (157-399) 01/30/24 06:12 MPV 12.4 fL (7.4-10.4) H 01/30/24 06:12 Neut % (Auto) 64.9 % 01/30/24 06:12 Lymph % (Auto) 22.8 % 01/30/24 06:12 [place] % (Auto) 10.5 % 01/30/24 06:12 Eos % (Auto) 1.2 % 01/30/24 06:12 Baso % (Auto) 0.4 % 01/30/24 06:12 Neut # (Auto) 6.54 10^3/uL (1.8-7.7) 01/30/24 06:12 Lymph # (Auto) 2.3 10^3/uL (0.8-4.8) 01/30/24 06:12 [place] # (Auto) 1.1 10^3/uL (0.2-0.9) H 01/30/24 06:12 Eos # (Auto) 0.1 10^3/uL (0.0-0.8) 01/30/24 06:12 Baso # (Auto) 0.0 10^3/uL (0.0-0.1) 01/30/24 06:12 Nucleated RBC % (auto) 0 % 01/30/24 06:12 Nucleated RBCs # 0.0 /100WBC 01/30/24 06:12 Sodium 130 mmol/L (136-145) L 01/30/24 06:12 Potassium 5.0 mmol/L (3.5-5.1) 01/30/24 06:12 Chloride 93 mmol/L (98-107) L 01/30/24 06:12 Carbon Dioxide 15 mmol/L (22-29) L 01/30/24 06:12 Anion Gap 27.0 (5-19) H 01/30/24 06:12 BUN 109 mg/dL (6-20) H* D 01/30/24 06:12 Creatinine 7.5 mg/dL (0.7-1.2) H* 01/30/24 06:12 GFR Calculation 7.5 mL/min (90-130) L 01/30/24 06:12 Glucose 165 mg/dL (65-115) H 01/30/24 06:12 Estimat Average Glucose 120 01/30/24 06:12 Hemoglobin A1c 5.8 % (4.0-6.0) 01/30/24 06:12 Calculated Osmolality 308 mOsm/kg (285-295) H 01/30/24 06:12 Lactic Acid 0.9 mmol/L (0.5-2.2) 01/30/24 06:12 Calcium 8.5 mg/dL (8.5-10.5) 01/30/24 06:12 Phosphorus 11.6 mg/dL (2.5-4.5) H* 01/30/24 06:12 Magnesium 3.5 mg/dL (1.7-2.3) H 01/30/24 06:12 Total Bilirubin 0.5 mg/dL (0.15-1.2) 01/30/24 06:12 AST 15 U/L (0-40) 01/30/24 06:12 ALT 22 U/L (0-41) 01/30/24 06:12 Alkaline Phosphatase 113 U/L (40-130) 01/30/24 06:12 Creatine Kinase 158 U/L (39-308) 01/30/24 06:12 Total Protein 8.7 g/dL (6.6-8.7) 01/30/24 06:12 Albumin 4.3 g/dL (3.5-5.2) 01/30/24 06:12 Globulin 4.4 g/dL (1.3-4.6) 01/30/24 06:12 Urine Color Yellow (Yellow) 01/30/24 08:05 Urine Appearance Clear (CLEAR) 01/30/24 08:05 Urine pH 5 (5-7) 01/30/24 08:05 Ur Specific [place] 1.025 (1.005-1.030) 01/30/24 08:05 Urine Protein Neg (Negative) 01/30/24 08:05 Urine Glucose (UA) Norm (Normal) 01/30/24 08:05 Urine Ketones Negative (Negative) 01/30/24 08:05 Urine Blood Neg (Negative) 01/30/24 08:05 Urine Nitrate Negative (Negative) 01/30/24 08:05 Urine Bilirubin Neg (Negative) 01/30/24 08:05 Urine Urobilinogen Norm mg/dL (Negative) 01/30/24 08:05 Ur Leukocyte Esterase Negative (Negative) 01/30/24 08:05 Salicylates < 0.3 mg/dL (3-10) L 01/30/24 06:12 Acetaminophen < 5.0 ug/mL (10-30) L 01/30/24 06:12 Ethyl Alcohol < 10 mg/dL (0-10) 01/30/24 06:12 All radiology interpretation(s) finalized by discharge Discharge Plan Discharge Patient Disposition: Admitted As Inpatient Admit Provider: Jordon Mays Clinical Impression: Acute kidney injury, Metabolic acidosis, Hypotension, Daily consumption of alcohol Condition: Stable Coding Level of Care Code ED Director Of Sports Performance for Sidney Swan
[2024-01-30 06:19] LABS: Basophils % 0.4 %; Eosinophils # 0.1 10^3/uL (0.0-0.8); Eosinophils % 1.2 %; Hematocrit 46.3 % (37-53); Lymphocytes # 2.3 10^3/uL (0.8-4.8); Lymphocytes % 22.8 %; Mean Corpuscular HGB Conc 34.3 g/dL (30-55); Mean Corpuscular Hemoglobin 31.3 pg (27-33); Mean Corpuscular Volume 91.1 fl (82-101); Mean Platelet Volume 12.4 fL (7.4-10.4); Monocytes # 1.1 10^3/uL (0.2-0.9); Monocytes % 10.5 %; Neutrophils # 6.54 10^3/uL (1.8-7.7); Neutrophils % 64.9 %; Nucleated Red Blood Cells % 0 %; Platelet Count 288 10^3/cmm (157-399); Red Blood Count 5.08 10^6/uL (3.85-5.65); Red Cell Distribution Width 12.4 % (12.1-15.1); White Blood Count 10.08 10^3/uL (3.29-11.43)
[2024-01-30] MEDS: sodium chloride 0.9% 1,000 ML 999 ML IV ×3 (06:22→07:20)
[2024-01-30 06:42] LABS: Alanine Aminotransferase 22 U/L (0-41); Albumin Level 4.3 g/dL (3.5-5.2); Alkaline Phosphatase 113 U/L (40-130); Aspartate Amino Transferase 15 U/L (0-40); Calcium 8.5 mg/dL (8.5-10.5); Carbon Dioxide 15 mmol/L (22-29); Chloride 93 mmol/L (98-107); Globulin 4.4 g/dL (1.3-4.6); Glomerular Filtration Rate 7.5 mL/min (90-130); Glucose 165 mg/dL (65-115); Osmolality Calculated 308 mOsm/kg (285-295); Sodium 130 mmol/L (136-145); Total Bilirubin 0.5 mg/dL (0.15-1.2); Total Protein 8.7 g/dL (6.6-8.7)
[2024-01-30 06:58] LABS: Blood Urea Nitrogen 109 mg/dL (6-20)
[2024-01-30 08:05] LABS: Lactic Sepsis W/Reflex 0.9 mmol/L (0.5-2.2); Magnesium 3.5 mg/dL (1.7-2.3)
[2024-01-30 08:11] LABS: Acetaminophen < 5.0 ug/mL (10-30); Alcohol Level < 10 mg/dL (0-10); Phosphorus 11.6 mg/dL (2.5-4.5); Salicylate < 0.3 mg/dL (3-10)
[2024-01-30 08:15] LABS: Add Urine Microscopic? NO; Charge for UA Resulting for Rev
--- NOTE | 2024-01-30 08:15 | P.HP_ITS ---
Providers/Chief Complaint 2 Admitting Physician: Jordon Mays MD Primary Care Provider: Surendra Elizondo DO Chief Complaint: dizzy, light headed History of Present Illness Trung Marvin is a 58 year old male presenting to the emergency department with dizziness and nausea since Sunday. He has not been able to drink or eat as much. He had a similar event around 4 years ago when he had severe acute kidney injury. He states he was urinating quite dark, but it is lightening up. 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 He reports no blood in his stools, no vomiting, no black or tarry stools. He does use anti-inflammatories for headaches occasionally and has been in the rhythm last 2 to 3 days. He reports no concerns of urinary retention. He has had no fevers lately. Does drink 6-8 beers a day but last alcohol intake was approximately 2 days ago. Has never had any withdrawal symptoms. In the emergency department blood pressure around 70. Bradycardic with heart rate around 50. He has received 3 L of fluid and blood pressures come up some. It is still borderline. Review of Systems 2 General: Reports: 10 or more systems reviewed and unremarkable except in HPI and below Const: Denies: fever(s) Card: Denies: chest pain Resp: Denies: dyspnea GI: Reports: nausea; Denies: abdominal pain, vomiting, hematochezia or melena Medications/Allergies Home Medications Medication Instructions Recorded Confirmed Last Taken Type sertraline 50 mg tablet (Zoloft) 50 mg PO DAILY 03/24/20 01/30/24 01/30/24 History allopurinol 100 mg tablet 100 mg PO DAILY 01/30/24 01/30/24 01/30/24 History lisinopril 20 mg tablet 20 mg PO DAILY 01/30/24 01/30/24 01/30/24 History sildenafil 50 mg tablet 50 mg PO DAILY 01/30/24 01/30/24 Unknown History Allergies Allergy/AdvReac Type Severity Reaction Status Date / Time No Known Allergies Allergy Verified 02/03/21 13:58 PFSH Acute 2 PFSH: Medical History (Updated 01/30/24 @ 09:06 by Jordon Mays MD) Hepatitis C Gout Hypertension Blood pressure medication reduced. Surgical History No pertinent past surgical history Family History Father Cancer Mother Atrial fibrillation Other Hypertension Social History Smoking and tobacco/nicotine status: former use of tobacco/nicotine Alcohol intake: current Alcohol intake frequency: other Household members: spouse Vitals/I&O/Wt Last Vital Signs Temp 97.5 F L 01/30/24 06:08 Pulse 48 L 01/30/24 08:00 Resp 14 01/30/24 08:00 BP 104/67 01/30/24 08:00 Pulse Ox 97 01/30/24 08:00 O2 Del Method Room Air 01/30/24 08:00 01/29/24 01/30/24 01/30/24 22:59 06:59 14:59 Intake Total 965.7 / 965.7 Balance 965.7 / 965.7 Weight last 48 hrs Weight 77.111 kg Physical Exam 2 Narrative: General exam is white male, reporting some nausea. HEENT: Atraumatic normocephalic. Mucous membranes dry. Neck is supple no lymphadenopathy or thyromegaly Cardiovascular bradycardic, no murmur Lungs clear Abdomen is soft, positive bowel sounds. No obvious organomegaly exams deferred Extremities no sinus clubbing edema, cap refill brisk Skin no rash Neuro no obvious focal deficits. Data 01/30/24 06:12 01/30/24 06:12 Other Labs: Chest x-ray by my read no infiltrate. EKG demonstrates sinus bradycardia, normal axis, no acute changes Phosphorus 11.6, magnesium 3.5, calcium and albumin normal, LFTs normal, urinalysis negative, no protein or blood, CK 158 A&P Assessment and plan (1) Acute kidney injury: Patient presents with acute kidney injury. Likely this is a combination of dehydration, heat, anti-inflammatory use. 3 L of IV fluids being given in the emergency department Continue IV fluids at 150 cc an hour, isotonic Recheck BMP at 1400 Renal ultrasound to rule out obstruction Urine was checked and negative CK demonstrates no significant evidence of rhabdo Monitoring in the ICU currently secondary to significant hypotension on arrival, severity of renal dysfunction, potassium upper limits of normal. (2) Metabolic acidosis: Acute metabolic acidosis is secondary to renal failure. (3) Hypotension: Correcting with IV fluids (4) Dehydration: See above (5) Bradycardia: Patient has some bradycardia. He is asymptomatic. Will continue to follow. No further workup at this time. (6) Daily consumption of alcohol: Currently no evidence of withdrawal. He has been alcohol free according to the patient for at least 2 days. He does not have elevated LFTs, or MCV. Platelets are normal. Monitor for withdrawal but doubt will occur. (7) Hyperglycemia: Check hemoglobin A1c No concern currently for DKA. Plan Other medical problems as outlined in past medical history Full code Heparin for DVT prophylaxis as well as SCDs. Attestations 2 Medical Necessity Statement*: Will need greater than 2 midnight stay for evaluation and treatment of acute kidney injury associate with metabolic acidosis and hypotension. Diagnoses Acute kidney injury N17.9 Metabolic acidosis E87.20 Hypotension I95.9 Dehydration E86.0 Bradycardia R00.1 Daily consumption of alcohol Z78.9 Hyperglycemia R73.9 Time Spent (min) 55
[2024-01-30 08:27] LABS: Bilirubin Urine Neg (Negative); Blood Urine Neg (Negative); Glucose Urine UA Norm (Normal); Ketones Urine Negative (Negative); Leukocyte Esterase Urine Negative (Negative); Nitrate Urine Negative (Negative); Protein Urine Neg (Negative); Specific Gravity, Urine 1.025 (1.005-1.030); Urine Appearance Clear (CLEAR); Urine Color Yellow (Yellow); Urobilinogen Urine Norm (Negative); pH Urine 5 (5-7)
[2024-01-30 08:28] LABS: Creatine Phosphokinase 158 U/L (39-308)
--- NOTE | 2024-01-30 09:05 | US_ITS ---
WS: [id number] Exam: US renal BI* [id number] Date/Time of Exam: 01/30/2024 10:49 AM Reason For Exam: renal failure The kidneys are of normal size, shape and location. No sign of solid or cystic renal mass. No sign of renal obstruction. The RIGHT kidney measures 10.1 x 5.8 x 5.6 cm. The LEFT kidney measures 10.8 x 5. 6 x 5.1 cm. Cortical thickness on the RIGHT is 1.3 cm, on the LEFT 1.4 cm. US/US renal BI* [id number] IMPRESSION: 1. Unremarkable bilateral renal ultrasound.
[2024-01-30] MEDS: sodium chloride 0.9% 1,000 ML 150 ML IV ×3 (09:53→17:58)
[2024-01-30] MEDS: famotidine 20 mg Tablet PO ×2 (09:53→17:58)
[2024-01-30] MEDS: heparin 5,000 unit/mL INJ 1 mL 5000 UNIT SUBCUT ×2 (09:53→20:32)
[2024-01-30 10:30] LABS: Estmated Average Glucose 120; Hemoglobin A1C 5.8 % (4.0-6.0)
[2024-01-30 13:48] LABS: Anion Gap 19.7 (5-19); Calcium 7.6 mg/dL (8.5-10.5); Carbon Dioxide 17 mmol/L (22-29); Chloride 105 mmol/L (98-107); Creatinine Clr Calc Pharmacy 16.8915; Glucose 106 mg/dL (65-115); Osmolality Calculated 315 mOsm/kg (285-295); Potassium 4.7 mmol/L (3.5-5.1); Sodium 137 mmol/L (136-145)
[2024-01-30 14:20] LABS: Blood Urea Nitrogen 99 mg/dL (6-20)
[2024-01-31] MEDS: sodium chloride 0.9% 1,000 ML 150 ML IV ×2 (00:33→07:15)
[2024-01-31 00:35] VITALS: BP 119/75; PULSE 53; RESP 16; TEMP 36.4; O2SAT 96
[2024-01-31 04:42] VITALS: BP 120/76; PULSE 60; RESP 16; TEMP 37; O2SAT 93
[2024-01-31 05:16] LABS: Basophils # 0.1 10^3/uL (0.0-0.1); Basophils % 0.8 %; Eosinophils # 0.1 10^3/uL (0.0-0.8); Eosinophils % 1.7 %; Hematocrit 42.5 % (37-53); Lymphocytes # 2.2 10^3/uL (0.8-4.8); Lymphocytes % 34.1 %; Mean Corpuscular HGB Conc 33.4 g/dL (30-55); Mean Corpuscular Hemoglobin 31.6 pg (27-33); Mean Corpuscular Volume 94.7 fl (82-101); Mean Platelet Volume 12.5 fL (7.4-10.4); Monocytes # 0.7 10^3/uL (0.2-0.9); Monocytes % 11.1 %; Neutrophils # 3.32 10^3/uL (1.8-7.7); Nucleated Red Blood Cells % 0 %; Platelet Count 232 10^3/cmm (157-399); Red Blood Count 4.49 10^6/uL (3.85-5.65); Red Cell Distribution Width 12.8 % (12.1-15.1); White Blood Count 6.39 10^3/uL (3.29-11.43)
[2024-01-31 05:36] LABS: Alanine Aminotransferase 18 U/L (0-41); Albumin Level 3.8 g/dL (3.5-5.2); Alkaline Phosphatase 89 U/L (40-130); Blood Urea Nitrogen 71 mg/dL (6-20); Calcium 7.9 mg/dL (8.5-10.5); Carbon Dioxide 18 mmol/L (22-29); Chloride 115 mmol/L (98-107); Globulin 3.4 g/dL (1.3-4.6); Glucose 100 mg/dL (65-115); Magnesium 2.5 mg/dL (1.7-2.3); Osmolality Calculated 319 mOsm/kg (285-295); Sodium 144 mmol/L (136-145); Total Bilirubin 0.4 mg/dL (0.15-1.2); Total Protein 7.2 g/dL (6.6-8.7)
[2024-01-31 05:40] LABS: Creatinine Clr Calc Pharmacy 38.6749; Phosphorus 3.5 mg/dL (2.5-4.5)
[2024-01-31 05:45] LABS: Aspartate Amino Transferase 5 U/L (0-40)
[2024-01-31 06:00] VITALS: PULSE 58
[2024-01-31 08:00] VITALS: BP 122/72; PULSE 49; RESP 16; TEMP 36.5; O2SAT 98
[2024-01-31] MEDS: famotidine 20 mg Tablet PO (08:05)
[2024-01-31] MEDS: sertraline 50 mg Tablet PO (08:05)
[2024-01-31] MEDS: allopurinol 100 mg Tablet PO (08:05)
[2024-01-31] MEDS: heparin 5,000 unit/mL INJ 1 mL 5000 UNIT SUBCUT (08:05)
--- NOTE | 2024-01-31 08:45 | P.DS_ITS ---
Discharge Providers Date of Admission: 01/30/24 08:27 Date of Discharge: January 31, 2024 Attending Provider at Admission: Jordon Mays MD Attending Provider at Discharge: Jordon Mays MD Primary Care Provider: Surendra Elizondo DO Diagnoses at Discharge Discharge Diagnosis (1) Acute kidney injury: Status: Acute (2) Metabolic acidosis: Status: Acute (3) Hypotension: Status: Acute (4) Dehydration: Status: Acute (5) Bradycardia: Status: Acute (6) Daily consumption of alcohol: Status: Chronic Permanent problem details: beer (7) Hyperglycemia: Status: Acute Reason for Visit Reason for Visit: dizzy, light headed Hospital Course Hospital Course Patient is a 58-year-old white male who presented to the hospital with severe acute kidney injury, metabolic acidosis, hypotension. Anti-inflammatory for pain. H he had been working outside in the heat recently, taking some e was rehydrated. Renal ultrasound demonstrated no obstruction. Renal function improved quicker than expected with IV fluids, with creatinine coming down to 2.2 the following day. Acidosis had resolved significantly. It was thought he could continue to hydrate at home, not restart his lisinopril currently, not take any anti-inflammatories, and follow-up with his primary care provider next week with a BMP. He was encouraged not to work out in the heat currently. He and his were given opportunity to ask questions and agreed with the plan. Physical Exam Narrative: General exam no distress Neck is supple Cardiovascular regular in rhythm Lungs clear Abdomen soft Extremities no sinus clubbing edema Discharge Data Studies Completed and Pending Completed Studies During Hospitalization Category Date Time Status XR chest 1V portable [id number] Stat Exams 01/30/24 06:06 Completed US renal BI* [id number] Routine Ultrasound 01/30/24 09:05 Completed Pending at discharge Category Date Time Status Blood Culture Stat Lab 01/30/24 07:43 Results Radiology Impressions Chest X-Ray 01/30/24 06:06 IMPRESSION: No acute findings. Renal Ultrasound 01/30/24 09:05 IMPRESSION: 1. Unremarkable bilateral renal ultrasound. Laboratory Results WBC 6.39 10^3/uL (3.29-11.43) 01/31/24 04:36 RBC 4.49 10^6/uL (3.85-5.65) 01/31/24 04:36 Hgb 14.20 g/dL (11.27-16.99) 01/31/24 04:36 Hct 42.5 % (37-53) 01/31/24 04:36 MCV 94.7 fl (82-101) 01/31/24 04:36 MCH 31.6 pg (27-33) 01/31/24 04:36 MCHC 33.4 g/dL (30-55) 01/31/24 04:36 RDW 12.8 % (12.1-15.1) 01/31/24 04:36 Plt Count 232 10^3/cmm (157-399) 01/31/24 04:36 MPV 12.5 fL (7.4-10.4) H 01/31/24 04:36 Neut % (Auto) 52.0 % 01/31/24 04:36 Lymph % (Auto) 34.1 % 01/31/24 04:36 [place] % (Auto) 11.1 % 01/31/24 04:36 Eos % (Auto) 1.7 % 01/31/24 04:36 Baso % (Auto) 0.8 % 01/31/24 04:36 Neut # (Auto) 3.32 10^3/uL (1.8-7.7) 01/31/24 04:36 Lymph # (Auto) 2.2 10^3/uL (0.8-4.8) 01/31/24 04:36 [place] # (Auto) 0.7 10^3/uL (0.2-0.9) 01/31/24 04:36 Eos # (Auto) 0.1 10^3/uL (0.0-0.8) 01/31/24 04:36 Baso # (Auto) 0.1 10^3/uL (0.0-0.1) 01/31/24 04:36 Nucleated RBC % (auto) 0 % 01/31/24 04:36 Nucleated RBCs # 0.0 /100WBC 01/31/24 04:36 Sodium 144 mmol/L (136-145) 01/31/24 04:36 Potassium 5.0 mmol/L (3.5-5.1) 01/31/24 04:36 Chloride 115 mmol/L (98-107) H 01/31/24 04:36 Carbon Dioxide 18 mmol/L (22-29) L 01/31/24 04:36 Anion Gap 16.0 (5-19) 01/31/24 04:36 BUN 71 mg/dL (6-20) H 01/31/24 04:36 Creatinine 2.2 mg/dL (0.7-1.2) H 01/31/24 04:36 GFR Calculation 31.0 mL/min (90-130) L 01/31/24 04:36 Glucose 100 mg/dL (65-115) 01/31/24 04:36 Estimat Average Glucose 120 01/30/24 06:12 Hemoglobin A1c 5.8 % (4.0-6.0) 01/30/24 06:12 Calculated Osmolality 319 mOsm/kg (285-295) H 01/31/24 04:36 Lactic Acid 0.9 mmol/L (0.5-2.2) 01/30/24 06:12 Calcium 7.9 mg/dL (8.5-10.5) L 01/31/24 04:36 Phosphorus 3.5 mg/dL (2.5-4.5) D 01/31/24 04:36 Magnesium 2.5 mg/dL (1.7-2.3) H 01/31/24 04:36 Total Bilirubin 0.4 mg/dL (0.15-1.2) 01/31/24 04:36 AST 5 U/L (0-40) 01/31/24 04:36 ALT 18 U/L (0-41) 01/31/24 04:36 Alkaline Phosphatase 89 U/L (40-130) 01/31/24 04:36 Creatine Kinase 158 U/L (39-308) 01/30/24 06:12 Total Protein 7.2 g/dL (6.6-8.7) 01/31/24 04:36 Albumin 3.8 g/dL (3.5-5.2) 01/31/24 04:36 Globulin 3.4 g/dL (1.3-4.6) 01/31/24 04:36 Urine Color Yellow (Yellow) 01/30/24 08:05 Urine Appearance Clear (CLEAR) 01/30/24 08:05 Urine pH 5 (5-7) 01/30/24 08:05 Ur Specific [place] 1.025 (1.005-1.030) 01/30/24 08:05 Urine Protein Neg (Negative) 01/30/24 08:05 Urine Glucose (UA) Norm (Normal) 01/30/24 08:05 Urine Ketones Negative (Negative) 01/30/24 08:05 Urine Blood Neg (Negative) 01/30/24 08:05 Urine Nitrate Negative (Negative) 01/30/24 08:05 Urine Bilirubin Neg (Negative) 01/30/24 08:05 Urine Urobilinogen Norm mg/dL (Negative) 01/30/24 08:05 Ur Leukocyte Esterase Negative (Negative) 01/30/24 08:05 Salicylates < 0.3 mg/dL (3-10) L 01/30/24 06:12 Acetaminophen < 5.0 ug/mL (10-30) L 01/30/24 06:12 Ethyl Alcohol < 10 mg/dL (0-10) 01/30/24 06:12 Vitals Last Vital Signs Temp 97.7 F 01/31/24 08:00 Pulse 49 L 01/31/24 08:00 Resp 16 01/31/24 08:00 BP 122/72 01/31/24 08:00 Pulse Ox 98 01/31/24 08:00 O2 Del Method Room Air 01/31/24 08:00 Discharge Plan Discharge Patient Disposition: Home Condition: Stable Prescriptions: Continued sertraline [Zoloft] 50 mg tablet 50 mg PO DAILY sildenafil 50 mg tablet 50 mg PO DAILY allopurinol 100 mg tablet 100 mg PO DAILY Discontinued lisinopril 20 mg tablet 20 mg PO DAILY Discharge Orders: Discharge Order (Routine); Ordered 01/31/24 Ordered By: Jordon Mays Referrals: Surendra Elizondo DO [Primary Care Provider] - 4-7 days (BMP on follow-up) Discharge Diet: Regular Discharge Activity: Increase activity as tolerated Patient Instructions: Opioid Safety Activity Restrictions/Additional Instructions: Encourage fluids Follow-up with your primary care provider 3 to 5 days with BMP No anti-inflammatories Do not take your lisinopril currently. Discharge Attestations Time Spent in Discharge Care*: greater than 30 min Quality Metrics Clinical Quality Measures [ No reported AMI, CVA or VTE this stay] Coding Level of Care Code 54359 Total time (in minutes) for Discharge: 36 Diagnoses Acute kidney injury N17.9 Metabolic acidosis E87.20 Hypotension I95.9 Dehydration E86.0 Bradycardia R00.1 Daily consumption of alcohol Z78.9 Hyperglycemia R73.9
--- NOTE | 2024-01-31 11:27 | PC.NURSE ---
Discharge discussed with patient and spouce. Encouraged patient to drink lots of fluid to stay well hydrated. Went over follow up appointments and to stop taking lisinopril at the moment. Patient verbalized understanding.
[2024-01-31 11:30] VITALS: BP 122/72; PULSE 49; RESP 16; TEMP 36.5; O2SAT 98
== END 2024-01-31 10:35 | disposition home or self-care (01) | DRG 683 ==
LOC: ER 06:07 → ICU 08:27 → MEDSURG 17:20
PROVIDERS: Admitting Provider Internal Medicine; Emergency Provider Family Medicine; PCP Internal Medicine; Visit Provider Internal Medicine
DX: N17.9 Acute kidney failure, unspecified (principal); E87.20 Acidosis, unspecified; E86.0 Dehydration; I95.9 Hypotension, unspecified; R00.1 Bradycardia, unspecified; R73.9 Hyperglycemia, unspecified; F17.210 Nicotine dependence, cigarettes, uncomplicated; M10.9 Gout, unspecified; I10 Essential (primary) hypertension; B19.20 Unspecified viral hepatitis C without hepatic coma; F10.10 Alcohol abuse, uncomplicated
CPT/HCPCS: 36415; 71045; 76770; 80048; 80053; 80307; 81003; 82550; 83036; 83605; 83735; 84100; 85025; 87040; 93005; 96360; 96372; 99285; J1644; J7030